=== PATIENT | female | born 1980 | race African-American/Black ===

== ENCOUNTER → 2023-02-05 | Outpatient (CLI) | payer OTHER | LOC: M RAD 12:50 | PROVIDERS: ATTEND Physician Assistant | DX: M25.531 Pain in right wrist (principal); M18.11 Unilateral primary osteoarthritis of first carpometacarpal joint, right hand; M05.841 Other rheumatoid arthritis with rheumatoid factor of right hand; M67.431 Ganglion, right wrist ==

== ENCOUNTER → 2024-01-05 | Outpatient (CLI) | payer OTHER | LOC: M WHC 14:39 | PROVIDERS: ATTEND Physician Assistant | DX: Z12.31 Encounter for screening mammogram for malignant neoplasm of breast (principal); R92.333 Mammographic heterogeneous density, bilateral breasts ==

== ENCOUNTER → 2024-01-06 | Outpatient (CLI) | payer OTHER | LOC: M SOG 15:37 | PROVIDERS: ATTEND Orthopaedic Surgery Hand Surgery | DX: M25.531 Pain in right wrist (principal); M25.532 Pain in left wrist ==

== ENCOUNTER → 2024-02-04 | Outpatient (CLI) | payer OTHER | LOC: M RAD 07:15 | PROVIDERS: ATTEND Orthopaedic Surgery Hand Surgery | DX: M67.40 Ganglion, unspecified site (principal) ==

== ENCOUNTER → 2024-05-05 | Outpatient (CLI) | payer OTHER | LOC: M RAD 13:14 | PROVIDERS: ATTEND Physician Assistant | DX: M67.432 Ganglion, left wrist (principal) ==